=== PATIENT | male | born 1955 | race Two or more races ===

== ENCOUNTER 2017-07-14 07:10 | Outpatient (CLI) | payer OTHER | END 2017-07-14 07:11 | disposition home or self-care (01) | LOC: SONOGRAMA 07:10 | DX: R11.2 Nausea with vomiting, unspecified (principal); R42 Dizziness and giddiness; E78.5 Hyperlipidemia, unspecified; H66.93 Otitis media, unspecified, bilateral; Z13.29 Encounter for screening for other suspected endocrine disorder; Z11.3 Encounter for screening for infections with a predominantly sexual mode of transmission ==

== ENCOUNTER → 2017-07-14 | Outpatient (CLI) | payer OTHER | END | disposition home or self-care (01) | LOC: LAB 06:34 | DX: R11.2 Nausea with vomiting, unspecified (principal); R42 Dizziness and giddiness; E78.5 Hyperlipidemia, unspecified; H66.93 Otitis media, unspecified, bilateral; Z13.29 Encounter for screening for other suspected endocrine disorder; Z11.3 Encounter for screening for infections with a predominantly sexual mode of transmission; Z12.11 Encounter for screening for malignant neoplasm of colon ==

== ENCOUNTER 2020-10-09 09:18 | Outpatient (CLI) | payer OTHER | END 2020-10-09 09:32 | disposition home or self-care (01) | LOC: SONOGRAMA 09:18 → MAMO-SONO 10:45 | PROVIDERS: ATTEND Urology | DX: N40.1 Benign prostatic hyperplasia with lower urinary tract symptoms (principal) ==

== ENCOUNTER 2023-03-28 15:00 | Emergency (ER) | payer OTHER ==
[~2023-03-28] VITALS: Ht 177.8 cm; Wt 90.7 kg
[2023-03-28] MEDS ORDERED: LEVO-T25 MCG PO (15:34)
[2023-03-28] MEDS ORDERED: TIMOLOL MALEATE5 M4 OP (15:34)
[2023-03-28] MEDS ORDERED: VARDENAFIL HCL PO (15:35)
[2023-03-28] MEDS ORDERED: ESCITALOPRAM OX10 MG PO (15:35)
[2023-03-28 20:31] LABS: HEMATOCRIT 47.2 % (39.0-48.0); MEAN CELL VOLUME 87.5 fL (80.0-100.00); MEAN CORPUSCULAR HEMOGLOBIN 29.6 pg (27.00-32.0); MEAN CORPUSCULAR HGB CONC 33.9 g/dl (32.0-36.0); PLATELET COUNT 180 K/uL (150-450); RED CELL DISTRIBUTION WIDTH 13.8 % (11.5-14.5)
== END 2023-03-28 21:43 | disposition home or self-care (01) ==
LOC: ER 15:00
DX: U07.1 COVID-19 (principal); J06.9 Acute upper respiratory infection, unspecified; R53.81 Other malaise

== ENCOUNTER 2023-04-22 16:20 | Outpatient (CLI) | payer OTHER ==
[~2023-04-22 16:20] MED LIST: ESCITALOPRAM OX10 MG PO; LEVO-T25 MCG PO; TIMOLOL MALEATE5 M4 OP; VARDENAFIL HCL PO
[2023-04-22 17:06] LABS: HEMATOCRIT 44.3 % (39.0-48.0); MEAN CELL VOLUME 85.7 fL (80.0-100.00); MEAN CORPUSCULAR HEMOGLOBIN 29.1 pg (27.00-32.0); PLATELET COUNT 200 K/uL (150-450); RED BLOOD COUNT 5.17 M/uL (4.00-6.00); RED CELL DISTRIBUTION WIDTH 13.2 % (11.5-14.5)
[2023-04-22 17:37] LABS: MYCOPLASMA PNEUMONIAE IGM NON REACTIVE (NO REACTIVE)
== END 2023-04-22 20:20 | disposition home or self-care (01) ==
LOC: LAB 16:20
DX: Z11.59 Encounter for screening for other viral diseases (principal); A49.3 Mycoplasma infection, unspecified site; Z11.2 Encounter for screening for other bacterial diseases; Z20.822 Contact with and (suspected) exposure to COVID-19